=== PATIENT | female | born 1970 | race American Indian/Alaskan Native ===

== ENCOUNTER 2019-02-22 13:04 | Observation (INO) | payer MEDICARE, OTHER ==
--- NOTE | 2019-02-22 15:11 | RAD ---
Date of service: 02/22/2019 HISTORY: MISSED DIALYSIS COMPARISON: None available. TECHNIQUE: 1 view obtained. FINDINGS: LUNGS: No active pulmonary disease. PLEURA: No significant pleural effusion identified, no pneumothorax apparent. CARDIOVASCULAR: Minor aortic atherosclerotic calcification present. Cardiomegaly. No tony pulmonary vascular congestion. OSSEOUS STRUCTURES: No significant abnormalities. VISUALIZED UPPER ABDOMEN: Normal. OTHER FINDINGS: None. IMPRESSION: No ac active disease. No tony pulmonary venous congestion. Pulmonary cardiomegaly.
[2019-02-22 15:47] LABS: BASO # 0.1 K/uL (0.0-0.2); BASO % 1.7 % (0.0-2.0); EOS # 0.3 K/uL (0.0-0.7); EOS % 6.1 % (0.0-4.0); HEMOGLOBIN 9.5 g/dL (11.0-16.0); LYMPH # 1.3 K/uL (1.0-4.3); LYMPH % 26.4 % (20.0-40.0); MEAN CELL VOLUME 85.4 fL (81.0-99.0); MEAN CORPUSCULAR HEMOGLOBIN 28.7 pg (27.0-31.0); MEAN CORPUSCULAR HGB CONC 33.6 g/dL (33.0-37.0); MEAN PLATELET VOLUME 7.6 fL (7.2-11.7); MONO # 0.6 K/uL (0.0-0.8); MONO % 12.2 % (0.0-10.0); NEUT # 2.7 K/uL (1.8-7.0); NEUT % 53.6 % (50.0-75.0); RBC 3.31 Mil/uL (3.80-5.20); RED CELL DISTRIBUTION WIDTH 16.5 % (11.5-14.5)
[2019-02-22 16:03] LABS: ALB/GLOB RATIO 1.5 (1.0-2.1); ALBUMIN 4.4 g/dL (3.5-5.0); AST/SGOT 12 U/L (14-36); BLOOD UREA NITROGEN 73 mg/dL (7-17); GFR NON-AFRICAN AMERICAN 8
[2019-02-22 16:07] LABS: ALT/SGPT < 6 U/L (9-52)
--- NOTE | 2019-02-22 16:21 | C.PDOC ---
History Of Present Illness 49 y/o female pt presents to the ER to get her hemodialysis port located on his right groin flushed. Pt reports her blood looks very dark and clotted. Her last hemodialysis was on 02/17. Pt denies any chest pain, SOB, fever, palpitation and abdominal pain. Time Seen by Provider: 02/22/19 13:24 Chief Complaint (Nursing): Medical Clearance History Per: Patient History/Exam Limitations: no limitations Past Medical History Reviewed: Historical Data, Nursing Documentation, Vital Signs Vital Signs: Last Vital Signs Temp 98.5 F 02/22/19 13:11 Pulse 99 H 02/22/19 13:11 Resp 16 02/22/19 13:11 BP 157/100 H 02/22/19 13:11 Pulse Ox 100 02/22/19 13:11 Primary Care Provider: Arturo Chavez Family History: States: No Known Family Hx - Social History Hx Alcohol Use: No Hx Substance Use: No - Immunization History Hx Tetanus Toxoid Vaccination: No Hx Influenza Vaccination: No Hx Pneumococcal Vaccination: No Review Of Systems Constitutional: Positive for: Other (needs hemodialysis port flushed ). Negative for: Fever Cardiovascular: Negative for: Chest Pain, Palpitations Respiratory: Negative for: Shortness of Breath Gastrointestinal: Negative for: Abdominal Pain ED Course And Treatment - Laboratory Results Result Diagrams: 02/22/19 15:41 02/22/19 15:41 Lab Results: Total Bilirubin 0.3 mg/dL (0.2-1.3) 02/22/19 15:41 AST 12 U/L (14-36) L 02/22/19 15:41 ALT < 6 U/L (9-52) L 02/22/19 15:41 Alkaline Phosphatase 60 U/L (38-126) 02/22/19 15:41 Total Protein 7.4 g/dL (6.3-8.3) 02/22/19 15:41 Albumin 4.4 g/dL (3.5-5.0) 02/22/19 15:41 Globulin 3.0 gm/dL (2.2-3.9) 02/22/19 15:41 Albumin/Globulin Ratio 1.5 (1.0-2.1) 02/22/19 15:41 ECG: Interpreted By Me, Viewed By Me ECG Rhythm: Sinus Bradycardia Interpretation Of ECG: normal axis; T wave inversion in AVL and V2; peaked T waves. no acute ST changes Rate From EC O2 Sat by Pulse Oximetry: 100 - Other Rad chest X-Ray: Read By Radiologist Interpretation: Accession No. : [id number]. Patient Name / ID : MARTITA ALBARADO / [id number]. Exam Date : 02/22/2019 14:55:19 ( Approved ). Study Comment : Sex / Age : F / 49Y. Creator : Rock Wallace MD. Dictator : Rock Wallace MD. Research Lab Assistant : Reserve Operator : Rock Wallace MD. Nivia rover2 : Report Date : 02/22/2019 15:07:53. My Comment : . Date of service: 02/22/2019. HISTORY: MISSED DIALYSIS. COMPARISON: None available. TECHNIQUE: 1 view obtained. FINDINGS: LUNGS: No active pulmonary disease. PLEURA: No significant pleural effusion identified, no pneumothorax apparent. CARDIO VASCULAR: Minor aortic atherosclerotic calcification present. Cardiomegaly. No tony pulmonary vascular congestion. OSSEOUS STRUCTURES: No significant abnormalities. VISUALIZED UPPER ABDOMEN: Normal. OTHER FINDINGS: None. IMPRESSION: No ac active disease. No tony pulmonary venous congestion. Pulmonary cardiomegaly. Progress Note: Plans: -- labs. -- EKG. -- CXR Disposition - Disposition Forms: [email or web address] (Albanian) - Scribe Statement The provider has reviewed the documentation as recorded by the Scribe Cosme Do Provider Attestation: All medical record entries made by the Scribe were at my direction and personally dictated by me. I have reviewed the chart and agree that the record accurately reflects my personal performance of the history, physical exam, medical decision making, and the department course for this patient. I have also personally directed, reviewed, and agree with the discharge instructions and disposition.
[2019-02-22 19:39] LABS: HEPATITIS B SURFACE AG Negative (NEGATIVE)
[2019-02-22 19:56] LABS: HEPATITIS C ANTIBODY NEGATIVE (NEGATIVE)
[2019-02-22 22:02] VITALS: RESP 20
--- NOTE | 2019-02-23 04:45 | CP.PCM.HP ---
Present on Admission - Present on Admission Any Indicators Present on Admission: No Past Patient History - Past Social History Smoking Status: Never Smoked - PSYCHIATRIC Hx Substance Use: No Meds Allergies/Adverse Reactions: Allergies Allergy/AdvReac Type Severity Reaction Status Date / Time No Known Allergies Allergy Verified 02/22/19 13:16 Results - Vital Signs Recent Vital Signs: Last Vital Signs Temp 98.2 F 02/23/19 00:02 Pulse 63 02/23/19 00:02 Resp 20 02/23/19 00:02 BP 119/67 02/23/19 00:02 Pulse Ox 98 02/23/19 00:02 - Labs Result Diagrams: 02/22/19 15:41 02/22/19 15:41 Labs: Laboratory Results - last 24 hr 02/22/19 02/22/19 02/22/19 15:41 15:41 18:33 WBC 5.0 RBC 3.31 L Hgb 9.5 L Hct 28.3 L MCV 85.4 MCH 28.7 MCHC 33.6 RDW 16.5 H Plt Count 359 MPV 7.6 Neut % (Auto) 53.6 Lymph % (Auto) 26.4 Dolores % (Auto) 12.2 H Eos % (Auto) 6.1 H Baso % (Auto) 1.7 Neut # (Auto) 2.7 Lymph # (Auto) 1.3 Dolores # (Auto) 0.6 Eos # (Auto) 0.3 Baso # (Auto) 0.1 Sodium 138 Potassium 4.9 Chloride 103 Carbon Dioxide 21 L Anion Gap 19 BUN 73 H Creatinine 5.8 H Est GFR ( Amer) 9 Est GFR (Non-Af Amer) 8 Random Glucose 100 Calcium 9.0 Total Bilirubin 0.3 AST 12 L ALT < 6 L Alkaline Phosphatase 60 Total Protein 7.4 Albumin 4.4 Globulin 3.0 Albumin/Globulin Ratio 1.5 Hep Bs Antigen Negative Hep Bs Antibody Hepatitis C Antibody Negative 02/22/19 18:33 WBC RBC Hgb Hct MCV MCH MCHC RDW Plt Count MPV Neut % (Auto) Lymph % (Auto) Dolores % (Auto) Eos % (Auto) Baso % (Auto) Neut # (Auto) Lymph # (Auto) Dolores # (Auto) Eos # (Auto) Baso # (Auto) Sodium Potassium Chloride Carbon Dioxide Anion Gap BUN Creatinine Est GFR ( Amer) Est GFR (Non-Af Amer) Random Glucose Calcium Total Bilirubin AST ALT Alkaline Phosphatase Total Protein Albumin Globulin Albumin/Globulin Ratio Hep Bs Antigen Hep Bs Antibody Positive Hepatitis C Antibody
[2019-02-23 08:02] VITALS: O2SAT 99
[2019-02-23 15:35] VITALS: BP 142/79; PULSE 66; TEMP 99.4
--- NOTE | 2019-02-23 19:37 | CP.PCM.PN ---
Subjective - Date & Time of Evaluation Date of Evaluation: 02/23/19 Time of Evaluation: 07:00 - Subjective Subjective: dict Objective - Vital Signs/Intake and Output Vital Signs (last 24 hours): Temp Pulse Resp BP Pulse Ox 99.4 F 66 20 142/79 99 02/23/19 15:00 02/23/19 15:00 02/23/19 15:00 02/23/19 15:00 02/23/19 15:00 Intake and Output: 02/23/19 02/24/19 18:59 06:59 Intake Total 500 Balance 500 - Labs Labs: 02/22/19 15:41 02/22/19 15:41
--- NOTE | 2019-02-23 19:38 | CP.PCM.DIS ---
Provider - Provider Date of Admission: 02/22/19 16:53 Attending physician: Abel Gordillo MD Consults: 02/22/19 16:54 Physician Consult Stat Comment: ESRD ON HD Consulting Provider: Arturo Maria Consulting Physician: Arturo Maria Reason for Consult: NEEDS DIALYSIS Additional Comments: SPOKEN WITH Time Spent in preparation of Discharge (in minutes): 36 Hospital Course - Lab Results Lab Results: Most Recent Lab Values WBC 5.0 K/uL (4.8-10.8) 02/22/19 15:41 RBC 3.31 Mil/uL (3.80-5.20) L 02/22/19 15:41 Hgb 9.5 g/dL (11.0-16.0) L 02/22/19 15:41 Hct 28.3 % (34.0-47.0) L 02/22/19 15:41 MCV 85.4 fL (81.0-99.0) 02/22/19 15:41 MCH 28.7 pg (27.0-31.0) 02/22/19 15:41 MCHC 33.6 g/dL (33.0-37.0) 02/22/19 15:41 RDW 16.5 % (11.5-14.5) H 02/22/19 15:41 Plt Count 359 K/uL (130-400) 02/22/19 15:41 MPV 7.6 fL (7.2-11.7) 02/22/19 15:41 Neut % (Auto) 53.6 % (50.0-75.0) 02/22/19 15:41 Lymph % (Auto) 26.4 % (20.0-40.0) 02/22/19 15:41 Kinney % (Auto) 12.2 % (0.0-10.0) H 02/22/19 15:41 Eos % (Auto) 6.1 % (0.0-4.0) H 02/22/19 15:41 Baso % (Auto) 1.7 % (0.0-2.0) 02/22/19 15:41 Neut # (Auto) 2.7 K/uL (1.8-7.0) 02/22/19 15:41 Lymph # (Auto) 1.3 K/uL (1.0-4.3) 02/22/19 15:41 Kinney # (Auto) 0.6 K/uL (0.0-0.8) 02/22/19 15:41 Eos # (Auto) 0.3 K/uL (0.0-0.7) 02/22/19 15:41 Baso # (Auto) 0.1 K/uL (0.0-0.2) 02/22/19 15:41 Sodium 138 mmol/L (132-148) 02/22/19 15:41 Potassium 4.9 mmol/L (3.6-5.2) 02/22/19 15:41 Chloride 103 mmol/L (98-107) 02/22/19 15:41 Carbon Dioxide 21 mmol/L (22-30) L 02/22/19 15:41 Anion Gap 19 (10-20) 02/22/19 15:41 BUN 73 mg/dL (7-17) H 02/22/19 15:41 Creatinine 5.8 mg/dL (0.7-1.2) H 02/22/19 15:41 Est GFR ( Amer) 9 02/22/19 15:41 Est GFR (Non-Af Amer) 8 02/22/19 15:41 Random Glucose 100 mg/dL (65-105) 02/22/19 15:41 Calcium 9.0 mg/dl (8.6-10.4) 02/22/19 15:41 Total Bilirubin 0.3 mg/dL (0.2-1.3) 02/22/19 15:41 AST 12 U/L (14-36) L 02/22/19 15:41 ALT < 6 U/L (9-52) L 02/22/19 15:41 Alkaline Phosphatase 60 U/L (38-126) 02/22/19 15:41 Total Protein 7.4 g/dL (6.3-8.3) 02/22/19 15:41 Albumin 4.4 g/dL (3.5-5.0) 02/22/19 15:41 Globulin 3.0 gm/dL (2.2-3.9) 02/22/19 15:41 Albumin/Globulin Ratio 1.5 (1.0-2.1) 02/22/19 15:41 Hep Bs Antigen Negative (NEGATIVE) 02/22/19 18:33 Hep Bs Antibody Positive (NEGATIVE) 02/22/19 18:33 Hepatitis C Antibody Negative (NEGATIVE) 02/22/19 18:33 Discharge Plan - Follow Up Plan Condition: GOOD Disposition: AGAINST MEDICAL ADVICE Additional Instructions: FOLLOW UP WITH DR GORDILLO IN HIS OFFICE FOLLOW UP WITH DR MARIA IN HIS OFFICE CONTINUE HOME MEDICATION ACTIVITY TOLERATED HEMODIALYSIS SECHEDULE CALL DR GORDILLO OR GO THE EMERGENCY ROOM IF SYMPTOM RETURN OR WORSENING Referrals: Arturo Maria MD [Staff Provider] - Abel Gordillo MD [Staff Provider] -
--- NOTE | 2019-02-24 03:52 | DS ---
DISCHARGE DIAGNOSES: 1. End-stage renal disease. 2. Hypertension. HISTORY OF PRESENT ILLNESS AND HOSPITAL COURSE: This is a 49-year-old -[place] female with end-stage renal disease and hypertension. She is on hemodialysis and she is noncompliant with her diet, medications, and followup. The patient missed her hemodialysis, and she came to emergency room with dyspnea on the day of admission, and the patient was evaluated. She was hospitalized, and she underwent emergency hemodialysis. Chest x-ray showed congestion with fluid overload and after hemodialysis, she is feeling better. The patient is placed for outpatient hemodialysis and for that [employer] and insurance coordination is required, and the patient refuses to stay further and she signed out against medical advice. CONDITION UPON DISCHARGE: Guarded. The patient signed out against medical advice, and she will be followed up by her primary care physician. Abel Gordillo MD
[2019-02-24] MEDS ORDERED: Pneumococcal 23-Valent Vaccine IM ONE (10:00)
--- NOTE | 2019-02-25 10:43 | HP ---
CHIEF COMPLAINT: Missed hemodialysis. HISTORY OF PRESENT ILLNESS: This is 49-year-old female, who is an extremely poor historian, who is with end-stage renal disease, on hemodialysis for few years, the patient is not sure about regarding this. The patient's last hemodialysis was a few weeks ago. She is not sure if she ever had diabetes. She is not sure about the etiology of her renal failure. She has been followed up by Dr. Chavez and she is on hemodialysis. Currently, the patient is in the ER. The patient has no respiratory distress. No chest pain. No nausea or vomiting. No fever. No chills. No rigors. The patient denies any dysuria, hematuria, polyuria. No effusion. Denies any fever or chills. The patient denies any abdominal pain, nausea, vomiting. She has generalized weakness. She has tingling in the body. She feels weak. She denies any history of joint pain, hip pain. There is no stroke or loss of consciousness. There is no history of seizure like activity. No involuntary movement of the body. She denies any malaise. PAST MEDICAL HISTORY: 1. End-stage renal disease, on hemodialysis. 2. Hypertension. CURRENT MEDICATION: At home, she is on clonidine 0.2 mg three times a day and Coreg 25 mg twice a day. FAMILY HISTORY: Negative for renal failure. Negative for Al[place] syndrome. SOCIAL HISTORY: She is a nonsmoker and non-ETOH user. PHYSICAL EXAMINATION: GENERAL: A middle-aged female, in no acute distress. VITAL SIGNS: Blood pressure is 175/88, pulse 78, respiratory rate 20, temperature 98.1. SKIN: Good turgor, no bruit, no purpura, no petechiae, no ecchymosis. HEENT: Atraumatic, normocephalic. Negative PERRLA. Negative jaundice. Extraocular movement are intact. NECK: Supple. No JVD. No lymph nodes. No thyromegaly. CHEST WALL: Bilaterally symmetrical. There is no tenderness. LUNGS: Clear. No rales. CARDIOVASCULAR: S1 and S2 regular. No heaves. No thrills . ABDOMEN: Soft. Nontender. Bowel sounds are positive. RECTAL/PELVIC: Refused. EXTREMITIES: Left upper extremity has AV fistula with bruit. CENTRAL NERVOUS SYSTEM: Awake, alert, oriented x3, cranial nerves II through XII are normal. Power 5/5 x4. Plantars are downgoing. ASSESSMENT: End-stage renal disease, on hemodialysis. The patient is noncomplaint. She has missed dialysis. PLAN: 1. Hemodialysis, on renal consult. 2. Hypertension. 3. Anemia. 4. Admit details ordered, and examined. Abel Gordillo MD
== END 2019-02-23 18:15 | disposition left against medical advice (07) ==
LOC: C.ER 13:04 → C.9E 16:53 → C.3T 17:14
PROVIDERS: ADMIT Internal Medicine; ATTEND Internal Medicine
DX: I12.0 Hypertensive chronic kidney disease with stage 5 chronic kidney disease or end stage renal disease (principal); N18.6 End stage renal disease; Z99.2 Dependence on renal dialysis; Z91.15 Patient's noncompliance with renal dialysis; R06.00 Dyspnea, unspecified; E87.70 Fluid overload, unspecified; Z79.899 Other long term (current) drug therapy
CPT/HCPCS: 36415; 71045; 80053; 85025; 86706; 86803; 87340; 99283; G0257; G0378; J1644